=== PATIENT | female | born 1980 | race Caucasian/White ===

== ENCOUNTER 2019-02-22 11:15 | Emergency (ER) | payer BC | END 2019-02-22 12:09 | disposition home or self-care (01) | LOC: FTE 11:15 | DX: S39.92XA Unspecified injury of lower back, initial encounter (principal); S09.90XA Unspecified injury of head, initial encounter; W18.39XA Other fall on same level, initial encounter; Y92.9 Unspecified place or not applicable | CPT/HCPCS: 99283 ==